=== PATIENT | male | born 1965 | race American Indian/Alaskan Native ===

== ENCOUNTER 2017-05-21 10:06 | Emergency (ER) | payer SELFPAY ==
[2017-05-21 14:21] LABS: Eosinophils % (Auto) 1.5 % (0.0-4.3); Hematocrit 44.4 % (35.5-45.6); Mean Corpuscular HGB Conc 34 % (32-34); Mean Corpuscular Hemoglobin 32 pg (28-32); Mean Corpuscular Volume 96 fl (84-94); Platelet Count 253 K/mm3 (140-440); Red Blood Count 4.63 M/mm3 (3.65-5.03); Red Cell Distribution Width 13.7 % (13.2-15.2); White Blood Count 7.4 K/mm3 (4.5-11.0)
[2017-05-21 14:29] LABS: Anion Gap 17 mmol/L; BUN/Creatinine Ratio 14; Blood Urea Nitrogen 10 mg/dL (9-20); Calcium 9.7 mg/dL (8.4-10.2); Carbon Dioxide 24 mmol/L (22-30); Chloride 96.3 mmol/L (98-107); Glucose 88 mg/dL (75-100); Potassium 4.2 mmol/L (3.6-5.0); Sodium 133 mmol/L (137-145)
--- NOTE | 2017-05-21 14:46 | Emergency Department Report ---
ED General Adult HPI - General Chief complaint: Skin/Abscess/Foreign Body Stated complaint: HEMORRHOID PAIN Time Seen by Provider: 05/21/17 12:31 Source: patient Mode of arrival: Ambulatory Limitations: No Limitations - History of Present Illness Initial comments: This is a 52-year-old male nontoxic, well nourished in appearance, no acute signs of distress presents to the ED with c/o of hemorrhoids 1 week. Patient stated he was seen in [facility] ER and was diagnosed with hemorrhoids and was instructed to follow up with a colorectal surgeon the patient has not. Patient denies any fever, chills, nausea, vomiting, abdominal pain, numbness, tingling, headache, stiff neck, chest pain or shortness of breath. Patient denies any allergies or PMH. MD Complaint: Hemorrhoids -: week(s) (1) Radiation: non-radiation Severity scale (0 -10): 8 Quality: aching Consistency: constant Improves with: none Worsens with: none Associated Symptoms: denies other symptoms. denies: confusion, chest pain, cough, diaphoresis, fever/chills, headaches, loss of appetite, malaise, nausea/ vomiting, rash, seizure, shortness of breath, syncope, weakness Treatments Prior to Arrival: none - Related Data Previous Rx's Medication Instructions Recorded Last Taken Type Hydrocortisone/Lidocaine/Aloe 1 each RC Q6H #1 kit 05/21/17 Unknown Rx [Lidocaine-Hc 2-2% Cream Kit] Allergies Allergy/AdvReac Type Severity Reaction Status Date / Time No Known Allergies Allergy Verified 05/21/17 10:22 ED Review of Systems ROS: Stated complaint: HEMORRHOID PAIN Other details as noted in HPI Constitutional: denies: chills, fever Eyes: denies: eye pain, eye discharge, vision change ENT: denies: ear pain, throat pain Respiratory: denies: cough, shortness of breath, wheezing Cardiovascular: denies: chest pain, palpitations Endocrine: no symptoms reported Gastrointestinal: denies: abdominal pain, nausea, diarrhea Genitourinary: other (Hemorrhoids). denies: urgency, dysuria Musculoskeletal: denies: back pain, joint swelling, arthralgia Skin: denies: rash, lesions Neurological: denies: headache, weakness, paresthesias Psychiatric: denies: anxiety, depression Hematological/Lymphatic: denies: easy bleeding, easy bruising ED Past Medical Hx - Past Medical History Previous Medical History?: No - Surgical History Past Surgical History?: No - Social History Smoking Status: Current Some Day Smoker Substance Use Type: Alcohol - Medications Home Medications: Home Medications Medication Instructions Recorded Confirmed Last Taken Type Hydrocortisone/Lidocaine/Aloe 1 each RC Q6H #1 kit 05/21/17 Unknown Rx [Lidocaine-Hc 2-2% Cream Kit] ED Physical Exam - General Limitations: No Limitations General appearance: alert, in no apparent distress - Head Head exam: Present: atraumatic, normocephalic - Eye Eye exam: Present: normal appearance, PERRL, EOMI Pupils: Present: normal accommodation - ENT ENT exam: Present: normal exam, normal orophraynx, mucous membranes moist, TM's normal bilaterally, normal external ear exam - Neck Neck exam: Present: normal inspection, full ROM. Absent: tenderness, meningismus, lymphadenopathy, thyromegaly - Respiratory Respiratory exam: Present: normal lung sounds bilaterally. Absent: respiratory distress, wheezes, rales, rhonchi, stridor, chest wall tenderness, accessory muscle use, decreased breath sounds, prolonged expiratory - Cardiovascular Cardiovascular Exam: Present: regular rate, normal rhythm, normal heart sounds. Absent: irregular rhythm, systolic murmur, diastolic murmur, rubs, gallop - GI/Abdominal GI/Abdominal exam: Present: soft, normal bowel sounds. Absent: distended, tenderness, guarding, rebound, rigid, diminished bowel sounds - Rectal Rectal exam: Present: deferred, hemorrhoids (slight reducible with an lanced region. No thrombosis seen) - Extremities Exam Extremities exam: Present: normal inspection, full ROM, normal capillary refill. Absent: tenderness, pedal edema, joint swelling, calf tenderness - Back Exam Back exam: Present: normal inspection, full ROM. Absent: tenderness, CVA tenderness (R), CVA tenderness (L), muscle spasm, paraspinal tenderness, vertebral tenderness, rash noted - Neurological Exam Neurological exam: Present: alert, oriented X3, CN II-XII intact, normal gait, reflexes normal - Psychiatric Psychiatric exam: Present: normal affect, normal mood - Skin Skin exam: Present: warm, dry, intact, normal color. Absent: rash ED Course Vital Signs 05/21/17 05/21/17 10:19 15:11 Temperature 97.6 F Pulse Rate 106 H 90 Respiratory 18 18 Rate Blood Pressure 134/97 Blood Pressure 145/96 [Right] O2 Sat by Pulse 98 96 Oximetry - Reevaluation(s) Reevaluation #1: 05/21/17 14:54 Follow-up with a primary care doctor in 3-5 days or if symptoms worsen and continue return to emergency room as soon as possible. - Consultations Consultation #1: 05/21/17 14:54 Dr. Bacon has been consulted about patient history, physical exam, and examined patient himself and agrees to d/c with follow-up. ED Medical Decision Making - Lab Data Result diagrams: 05/21/17 13:56 05/21/17 13:56 - Medical Decision Making This is a 52-year-old male that presents with hemorrhoids. Patient is stable and was examined by Dr. Bacon and myself. CBC and BMP obtained within normal limits. Patients old records has been obtained from [facility] ED. Patient instructed about sitz bath and f/u with colorectal surgeon. Patient also was educated on increasing fiber intake and drinking enough fluid to keep his urine clear or pale yellow. Patient was instructed to seek medical attention is he has increased pain and swelling that are not controlled by treatment or medicine, has uncontrolled bleeding, difficulty having a bowel movement or unable to have a bowel movement or having pain or inflammation outside the area of the hemorrhoids. Patient was instructed to follow-up with a primary care doctor/colon rectal surgeon in 24 hours or if symptoms worsening and continue to return to the emergency room as soon as possible. Critical care attestation.: If time is entered above; I have spent that time in minutes in the direct care of this critically ill patient, excluding procedure time. ED Disposition Clinical Impression: Hemorrhoid Qualifiers: Hemorrhoid type: unspecified Qualified Code(s): K64.9 - Unspecified hemorrhoids Disposition: DC-01 TO HOME OR SELFCARE Is pt being admited?: No Does the pt Need Aspirin: No Condition: Stable Instructions: Hemorrhoids (ED), Sitz Bath (GEN) Additional Instructions: Follow-up with a primary care doctor/colon rectal surgeon in 24 hours or if symptoms worsen and continue return to emergency room as soon as possible. Seek medical attention is he has increased pain and swelling that are not controlled by treatment or medicine, has uncontrolled bleeding, difficulty having a bowel movement or unable to have a bowel movement or having pain or inflammation outside the area of the hemorrhoids. Prescriptions: Hydrocortisone/Lidocaine/Aloe [Lidocaine-Hc 2-2% Cream Kit] 1 each RC Q6H #1 kit Referrals: [facility] [Outside] - 3-5 Days [facility] [Outside] - 3-5 Days LUIS PARIKH MD [Staff Physician] - 24 Hours [facility] [Provider Group] - 24 Hours PRIMARY CAREMD [Primary Care Provider] - 24 Hours Forms: Work/School Release Form(ED)
[2017-05-21 15:12] VITALS: BP 145/96
== END 2017-05-21 15:45 | disposition home or self-care (01) ==
LOC: ED 10:06
DX: K64.9 Unspecified hemorrhoids (principal); F17.200 Nicotine dependence, unspecified, uncomplicated; F10.10 Alcohol abuse, uncomplicated
CPT/HCPCS: 36415; 80048; 85025; 99283

== ENCOUNTER 2018-12-24 15:04 | Emergency (ER) | payer OTHER ==
--- NOTE | 2018-12-24 15:18 | Emergency Department Report ---
Blank Doc - Documentation Documentation: This is a 53-year-old male that presents with right knee pain and swelling. This initial assessment/diagnostic orders/clinical plan/treatment(s) is/are subject to change based on patient's health status, clinical progression and re- assessment by fellow clinical providers in the ED. Further treatment and workup at subsequent clinical providers discretion. Patient/guardians urged not to elope from the ED as their condition may be serious if not clinically assessed and managed. Initial orders include: 1- Patient sent to [facility] for further evaluation and treatment 2- xray
[2018-12-24 15:19] VITALS: BP 144/89
--- NOTE | 2018-12-24 16:33 | XRay Report ---
XR knee 3V RT INDICATION / CLINICAL INFORMATION: knee pain and swelling. COMPARISON: None available. FINDINGS: BONES/JOINT(S): No acute fracture or subluxation. 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 Trace suprapatella r joint effusion. SOFT TISSUES: No significant abnormality. ADDITIONAL FINDINGS: None. Signer Name: Suleiman Joshi MD Signed: 12/24/2018 3:28 PM Workstation Name: [id number]
--- NOTE | 2018-12-24 18:02 | Emergency Department Report ---
ED Extremity Problem HPI - General Chief complaint: Extremity Injury, Lower Stated complaint: KNEE PAIN Time Seen by Provider: 12/24/18 15:17 Source: patient Mode of arrival: Ambulatory Limitations: No Limitations - History of Present Illness Initial comments: Patient is a 53-year-old male who presents to the emergency room with complaints of right knee pain and edema that reoccurred last week. He states he was seen at another hospital for the same knee pain a year ago and states his x-rays were normal. He denies any fall, injury, numbness, weakness. 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 He denies any past medical history or allergies to medications. He does not have a primary care doctor. - Related Data Previous Rx's Medication Instructions Recorded Last Taken Type Lidocaine/Hydrocortisone AC 1 each RC Q6H #1 kit 05/21/17 Unknown Rx [Lidocaine-Hc 2-2% Cream Kit] Diclofenac EC [Voltaren] 25 mg PO Q8HR PRN #20 tablet 12/24/18 Unknown Rx Allergies Allergy/AdvReac Type Severity Reaction Status Date / Time No Known Allergies Allergy Verified 05/21/17 10:22 ED Review of Systems ROS: Stated complaint: KNEE PAIN Other details as noted in HPI Comment: All other systems reviewed and negative ED Past Medical Hx - Past Medical History Previous Medical History?: No Hx Arthritis: No - Surgical History Past Surgical History?: No - Social History Smoking Status: Current Every Day Smoker Substance Use Type: Alcohol - Medications Home Medications: Home Medications Medication Instructions Recorded Confirmed Last Taken Type Lidocaine/Hydrocortisone AC 1 each RC Q6H #1 kit 05/21/17 Unknown Rx [Lidocaine-Hc 2-2% Cream Kit] Diclofenac EC [Voltaren] 25 mg PO Q8HR PRN #20 tablet 12/24/18 Unknown Rx ED Physical Exam - General Limitations: No Limitations General appearance: alert, in no apparent distress - Head Head exam: Present: atraumatic, normocephalic - Eye Eye exam: Present: normal appearance - ENT ENT exam: Present: mucous membranes moist - Extremities Exam Extremities exam: Present: other (no point TTP of the right knee, edema present to the right knee, FROM of the right knee with some discomfort upon flexion, no obvious deformity, no joint laxity ) - Neurological Exam Neurological exam: Present: alert, oriented X3 - Psychiatric Psychiatric exam: Present: normal affect, normal mood - Skin Skin exam: Present: warm, dry, intact ED Course Vital Signs 12/24/18 15:17 Temperature 98 F Pulse Rate 93 H Respiratory 16 Rate Blood Pressure 144/89 O2 Sat by Pulse 98 Oximetry ED Medical Decision Making - Radiology Data Radiology results: report reviewed XR knee 3V RT INDICATION / CLINICAL INFORMATION: knee pain and swelling. COMPARISON: None available. FINDINGS: BONES/JOINT(S): No acute fracture or subluxation. Moderate DJD in the medial femorotibial and patellofemoral compartments with mild joint space loss and marginal osteophyte formation. Trace suprapatellar joint effusion. SOFT TISSUES: No significant abnormality. ADDITIONAL FINDINGS: None. Signer Name: Suleiman Joshi MD Signed: 12/24/2018 3:28 PM Workstation Name: [id number] Transcribed By: REF Dictated By: KINZA LANE MD Electronically Authenticated By: KINZA LANE MD Signed Date/Time: 12/24/18 1528 - Medical Decision Making Patient is a 53-year-old male who presents to the emergency room with complaints of right knee pain and edema that reoccurred last week. He states he was seen at another hospital for the same knee pain a year ago and states his x-rays were normal. He denies any fall, injury, numbness, weakness. 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 He denies any past medical history or allergies to medications. He does not have a primary care doctor. XR of the knee shows No acute fracture or subluxation. Moderate DJD in the medial femorotibial and patellofemoral compartments with mild joint space loss and marginal osteophyte formation. Trace suprapatellar joint effusion. on exam: no point TTP of the right knee, edema present to the right knee, FROM of the right knee with some discomfort upon flexion, no obvious deformity, no joint laxity. pt XR shows arthritic changes, discussed RICE therapy with the patient. given prescription for diclofenac. advised to please take medication as prescribed as needed. May use ice, rest, compression, elevation. Use Devin wrap as needed for discomfort. Follow-up with Dr. Murphy, orthopedic in the next 2-3 days. Return to the emergency room for any new or worsening symptoms. - Differential Diagnosis strain, sprain, fx, dislocation, arthritis Critical care attestation.: If time is entered above; I have spent that time in minutes in the direct care of this critically ill patient, excluding procedure time. ED Disposition Clinical Impression: Right knee pain Qualifiers: Chronicity: acute Qualified Code(s): M25.561 - Pain in right knee Disposition: TO HOME OR SELFCARE Is pt being admited?: No Does the pt Need Aspirin: No Condition: Stable Instructions: Osteoarthritis (ED), RICE Therapy (ED) Additional Instructions: Please take medication as prescribed as needed. May use ice, rest, compression, elevation. Use Devin wrap as needed for discomfort. Follow-up with Dr. Murphy, orthopedic in the next 2-3 days. Return to the emergency room for any new or worsening symptoms. Prescriptions: Diclofenac EC [Voltaren] 25 mg PO Q8HR PRN #20 tablet PRN Reason: Pain, Moderate (4-6) Referrals: CECILIA TENORIODENTON MD FLORENCIA [Primary Care Provider] - 2-3 Days XOCHITL MURPHY MD [Staff Physician] - 2-3 Days Time of Disposition: 18:01 Print Language: FRENCH
== END 2018-12-24 18:14 | disposition home or self-care (01) ==
LOC: ED 15:04
DX: M25.561 Pain in right knee (principal); F17.200 Nicotine dependence, unspecified, uncomplicated; Z79.899 Other long term (current) drug therapy
CPT/HCPCS: 99283

== ENCOUNTER 2019-02-10 17:44 | Emergency (ER) | payer SELFPAY ==
--- NOTE | 2019-02-10 18:49 | Event Note ---
ED Screening Note Date of service: 02/10/19 Time: 18:42 ED Screening Note: 53 y/o male comes in for rash on both inner arms. Rash that itches. Has DM and ia not following a PCP. This initial assessment/diagnostic orders/clinical plan/treatment(s) is/are subject to change based on patients health status, clinical progression and re- assessment by fellow clinical providers in the ED. Further treatment and workup at subsequent clinical providers discretion. Patient/guardian urged not to elope from the ED as their condition may be serious if not clinically assessed and managed. Initial orders include:
--- NOTE | 2019-02-10 18:55 | Emergency Department Report ---
Chief Complaint: Dizziness Stated Complaint: PASSED OUT INJURED BACK Time Seen by Provider: 02/10/19 18:39 - HPI History of Present Illness: 53 y/o male comes in for rash on both inner arms. Rash that itches. Has DM and ia not following a PCP. - ROS Review of Systems: Rash on arms that itch. - Exam Vital Signs: Vital Signs 02/10/19 18:20 Temperature 98.3 F Pulse Rate 98 H Respiratory 18 Rate Blood Pressure 147/87 O2 Sat by Pulse 100 Oximetry Physical Exam: AxO times 3 Inner arm hyperpigmented thick scaly MSE screening note: Focused history and physical exam performed. Due to findings the following was ordered: Patient will be placed on [facility] ED Disposition for MSE Clinical Impression: Contact dermatitis Disposition: DC- TO HOME OR SELFCARE Is pt being admited?: No Does the pt Need Aspirin: No Condition: Stable Instructions: Contact Dermatitis (ED) Additional Instructions: Use ointment as prescribed. Follow up with a Primary Care provider. Prescriptions: Triamcinolone Acetonide [Triamcinolone Acetonide Oint 0.5%] 1 applic TP BID PRN #30 oint...g. PRN Reason: Rash Referrals: [facility] [Outside] - 3-5 Days [facility] [Outside] - 3-5 Days [facility] [Outside] - 3-5 Days
[2019-02-10] MEDS ORDERED: NORCO 5/325 PO ONE (21:21)
[2019-02-10 21:38] LABS: Basophils # (Auto) 0.1 K/mm3 (0.0-0.1); Eosinophils # (Auto) 0.2 K/mm3 (0.0-0.4); Eosinophils % (Auto) 2.8 % (0.0-4.3); Hematocrit 41.6 % (35.5-45.6); Hemoglobin 14.4 gm/dl (11.8-15.2); Lymphocytes # (Auto) 2.2 K/mm3 (1.2-5.4); Mean Corpuscular HGB Conc 35 % (32-34); Mean Corpuscular Volume 96 fl (84-94); Monocytes # (Auto) 0.7 K/mm3 (0.0-0.8); Monocytes % (Auto) 10.3 % (0.0-7.3); Platelet Count 240 K/mm3 (140-440); Red Blood Count 4.34 M/mm3 (3.65-5.03); Red Cell Distribution Width 13.9 % (13.2-15.2)
--- NOTE | 2019-02-10 21:40 | Emergency Department Report ---
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 denies: confusion, chest pain, cough, diaphoresis, fever/chills, headaches, loss of appetite, nausea/vomiting, rash, seizure, shortness of breath, weakness Treatments Prior to Arrival: none - Related Data Previous Rx's Medication Instructions Recorded Last Taken Type Lidocaine/Hydrocortisone AC 1 each RC Q6H #1 kit 05/21/17 Unknown Rx [Lidocaine-Hc 2-2% Cream Kit] Diclofenac EC [Voltaren] 25 mg PO Q8HR PRN #20 tablet 12/24/18 Unknown Rx Triamcinolone Acetonide 1 applic TP BID PRN #30 oint...g. 02/10/19 Unknown Rx [Triamcinolone Acetonide Oint 0.5%] Famotidine [Pepcid] 20 mg PO BID #60 tablet 02/11/19 Unknown Rx Ibuprofen [Motrin 800 MG tab] 800 mg PO Q8HR PRN #30 tablet 02/11/19 Unknown Rx Allergies Allergy/AdvReac Type Severity Reaction Status Date / Time No Known Allergies Allergy Verified 05/21/17 10:22 ED Review of Systems ROS: Stated complaint: PASSED OUT INJURED BACK Other details as noted in HPI Constitutional: denies: chills, fever Eyes: denies: eye pain, eye discharge, vision change ENT: denies: ear pain, throat pain Respiratory: no symptoms reported Cardiovascular: denies: chest pain, palpitations Endocrine: no symptoms reported Gastrointestinal: denies: abdominal pain, nausea, vomiting, diarrhea, constipation, hematemesis, melena Genitourinary: denies: urgency, dysuria, frequency, discharge Musculoskeletal: back pain, arthralgia. denies: joint swelling, myalgia Skin: denies: rash, lesions Neurological: denies: headache, weakness, numbness, paresthesias, confusion, abnormal gait, vertigo Psychiatric: denies: anxiety, depression Hematological/Lymphatic: denies: easy bleeding, easy bruising ED Past Medical Hx - Past Medical History Previous Medical History?: No Hx Arthritis: No - Surgical History Past Surgical History?: Yes Additional Surgical History: ABD SURGERY 17 YRS AGO - Social History Smoking Status: Current Every Day Smoker Substance Use Type: Alcohol - Medications Home Medications: Home Medications Medication Instructions Recorded Confirmed Last Taken Type Lidocaine/Hydrocortisone AC 1 each RC Q6H #1 kit 05/21/17 Unknown Rx [Lidocaine-Hc 2-2% Cream Kit] Diclofenac EC [Voltaren] 25 mg PO Q8HR PRN #20 tablet 12/24/18 Unknown Rx Triamcinolone Acetonide 1 applic TP BID PRN #30 oint...g. 02/10/19 Unknown Rx [Triamcinolone Acetonide Oint 0.5%] Famotidine [Pepcid] 20 mg PO BID #60 tablet 02/11/19 Unknown Rx Ibuprofen [Motrin 800 MG tab] 800 mg PO Q8HR PRN #30 tablet 02/11/19 Unknown Rx ED Physical Exam - General Limitations: No Limitations General appearance: alert, in no apparent distress - Head Head exam: Present: atraumatic, normocephalic - Eye Eye exam: Present: normal appearance, PERRL, EOMI Pupils: Present: normal accommodation - ENT ENT exam: Present: mucous membranes moist - Neck Neck exam: Present: normal inspection, full ROM. Absent: tenderness, lymphadenopathy, thyromegaly - Respiratory Respiratory exam: Present: normal lung sounds bilaterally. Absent: respiratory distress, wheezes, stridor, chest wall tenderness - Cardiovascular Cardiovascular Exam: Present: regular rate, normal rhythm, normal heart sounds. Absent: systolic murmur, diastolic murmur, rubs, gallop - GI/Abdominal GI/Abdominal exam: Present: soft, normal bowel sounds. Absent: distended, tenderness, guarding, rebound, rigid, bruit, hernia - Rectal Rectal exam: Present: deferred - Extremities Exam Extremities exam: Present: normal inspection, full ROM, normal capillary refill. Absent: tenderness, pedal edema, joint swelling, calf tenderness - Back Exam Back exam: Present: normal inspection, full ROM, tenderness (no posterior vertebral point tenderness mild paraspinus muscle tenderness to deep palpation neg straight leg rom intact and unrestricted ), muscle spasm, paraspinal tenderness. Absent: CVA tenderness (R), CVA tenderness (L), vertebral tender ness, rash noted - Expanded Back Exam Expanded Back exam: Absent: saddle anesthesia Back exam: Negative Straight Leg Raising: Left, Right - Neurological Exam Neurological exam: Present: alert, oriented X3, CN II-XII intact, normal gait, reflexes normal. Absent: motor sensory deficit - Expanded Neurological Exam Expanded Patient oriented to: Present: person, place, time Speech: Present: fluid speech Cranial nerves: EOM's Intact: Normal, Gag Reflex: Normal, Tongue Deviation: Normal, Nystagmus: Normal, Facial Sensation: Normal Cerebellar function: Finger to Nose: Normal, Heel to Watkins: Normal, Romberg: Normal Upper motor neuron: Jose Neglect: Normal, Pronator Drift: Normal, Babinski Sign: Normal, Sensory Extinction: Normal Motor strength exam: RUE: 5, LUE: 5, RLE: 5, LLE: 5 DTR: bicep (R): 2+, bicep (L): 2+, ankle (R): 2+, ankle (L): 2+ Best Eye Response (Cookie): (4) open spontaneously Best Motor Response (Cookie): (6) obeys commands Best Verbal Response (Cookie): (5) oriented Cookie Total: 15 - Psychiatric Psychiatric exam: Present: normal affect, normal mood - Skin Skin exam: Present: warm, dry, intact, normal color. Absent: rash ED Course Vital Signs 02/10/19 18:20 Temperature 98.3 F Pulse Rate 98 H Respiratory 18 Rate Blood Pressure 147/87 O2 Sat by Pulse 100 Oximetry ED Medical Decision Making - Lab Data Result diagrams: 02/10/19 21:28 02/10/19 21:28 Lab Results 02/10/19 02/10/19 02/10/19 Range/Units 21:28 21:28 22:41 WBC 6.7 (4.5-11.0) K/mm3 RBC 4.34 (3.65-5.03) M/mm3 Hgb 14.4 (11.8-15.2) gm/dl Hct 41.6 (35.5-45.6) % MCV 96 H (84-94) fl MCH 33 H (28-32) pg MCHC 35 H (32-34) % RDW 13.9 (13.2-15.2) % Plt Count 240 (140-440) K/mm3 Lymph % (Auto) 32.0 (13.4-35.0) % [place] % (Auto) 10.3 H (0.0-7.3) % Eos % (Auto) 2.8 (0.0-4.3) % Baso % (Auto) 1.0 (0.0-1.8) % Lymph # 2.2 (1.2-5.4) K/mm3 [place] # 0.7 (0.0-0.8) K/mm3 Eos # 0.2 (0.0-0.4) K/mm3 Baso # 0.1 (0.0-0.1) K/mm3 Seg Neutrophils % 53.9 (40.0-70.0) % Seg Neutrophils # 3.6 (1.8-7.7) K/mm3 Sodium 137 (137-145) mmol/L Potassium 4.2 (3.6-5.0) mmol/L Chloride 102.1 (98-107) mmol/L Carbon Dioxide 23 (22-30) mmol/L Anion Gap 16 mmol/L BUN 17 (9-20) mg/dL Creatinine 0.8 (0.8-1.5) mg/dL Estimated GFR > 60 ml/min BUN/Creatinine Ratio 21 % Glucose 100 (75-100) mg/dL Calcium 10.4 H (8.4-10.2) mg/dL Total Bilirubin 0.70 (0.1-1.2) mg/dL AST 63 H (5-40) units/L ALT 87 H (7-56) units/L Alkaline Phosphatase 130 H (35-129) units/L Troponin T < 0.010 (0.00-0.029) ng/mL Total Protein 7.4 (6.3-8.2) g/dL Albumin 4.1 (3.9-5) g/dL Albumin/Globulin Ratio 1.2 % Urine Color Yellow (Yellow) Urine Turbidity Clear (Clear) Urine pH 5.0 (5.0-7.0) Ur Specific Alpha 1.024 (1.003-1.030) Urine Protein <15 mg/dl (Negative) mg/dL Urine Glucose (UA) Neg (Negative) mg/dL Urine Ketones Neg (Negative) mg/dL Urine Blood Neg (Negative) Urine Nitrite Neg (Negative) Urine Bilirubin Neg (Negative) Urine Urobilinogen < 2.0 (<2.0) mg/dL Ur Leukocyte Esterase Neg (Negative) Urine WBC (Auto) < 1.0 (0.0-6.0) /HPF Urine RBC (Auto) 3.0 (0.0-6.0) /HPF U Epithel Cells (Auto) < 1.0 (0-13.0) /HPF Urine Mucus Few /HPF - Radiology Data Radiology results: report reviewed, image reviewed Ordering Physician: ALPA NAVA NP Date of Service: 02/10/19 Procedure(s): XR spine lumbosacral 2-3V Accession Number(s): [id number] cc: ALPA NAVA NP Fluoro Time In Minutes: LUMBOSACRAL SPINE 3 VIEWS INDICATION / CLINICAL INFORMATION: fall on concrete with low back pain. COMPARISON: None available. FINDINGS: BONES / JOINT(S): There is mild thoracolumbar dextroscoliosis. There is mild spondylosis, most prominent at L3-4. The pedicles are intact and the SI joints are normal. There is no evidence of fracture or subluxation. SOFT TISSUES: No significant abnormality. ADDITIONAL FINDINGS: None. IMPRESSION: No acute abnormality. Signer Name: Jung Aparicio MD Signed: 02/10/2019 10:31 PM Workstation Name: [id number] Transcribed By: RT Dictated By: Jung Aparicio MD Electronically Authenticated By: Jung Aparicio MD Signed Date/Time: 02/10/19 [id number] Ordering Physician: ALPA NAVA NP Date of Service: 02/10/19 Procedure(s): XR chest routine 2V Accession Number(s): [id number] cc: ALPA NAVA NP Fluoro Time In Minutes: CHEST 2 VIEWS INDICATION / CLINICAL INFORMATION: Syncope. COMPARISON: None available. FINDINGS: SUPPORT DEVICES: None. HEART / MEDIASTINUM: The heart size and pulmonary vasculature are normal. The aorta is normal in caliber. LUNGS / PLEURA: No significant pulmonary or pleural abnormality. No pneumothorax. ADDITIONAL FINDINGS: No significant additional findings. IMPRESSION: No acute findings. Signer Name: Jung Aparicio MD Signed: 02/10/2019 10:30 PM Workstation Name: [id number] Transcribed By: RT Dictated By: Jung Aparicio MD Electronically Authenticated By: Jung Aparicio MD Signed Date/Time: 02/10/192229 DD/ 28 TD/TT: - Medical Decision Making cxr: normal no infiltrates no opacities, lumbar xrays DDD chronic, EKG NSR no ST Elevated CA , pain is resolved , pt advised to stop etoh and marijuana abuse follow up with pcp in 2-3 days given referral to pcp , pt dc 'd self in stable condition at this time. pt is tolerating po intake without n/v no cp no sob no d izziness no lightheadeness no fever or chills, Critical care attestation.: If time is entered above; I have spent that time in minutes in the direct care of this critically ill patient, excluding procedure time. ED Disposition Clinical Impression: Near syncope, Stress Disposition: DC-01 TO HOME OR SELFCARE Is pt being admited?: No Does the pt Need Aspirin: No Condition: Stable Instructions: Stress (ED), Near Syncope (ED) Additional Instructions: Use ointment as prescribed. Follow up with a Primary Care provider. Prescriptions: Ibuprofen [Motrin 800 MG tab] 800 mg PO Q8HR PRN #30 tablet PRN Reason: Pain , Severe (7-10) Famotidine [Pepcid] 20 mg PO BID #60 tablet Triamcinolone Acetonide [Triamcinolone Acetonide Oint 0.5%] 1 applic TP BID PRN #30 oint...g. PRN Reason: Rash Referrals: [facility] [Outside] - 3-5 Days [facility] [place] [Outside] - 3-5 Days [facility] [Outside] - 3-5 Days Forms: Work/School Release Form(ED) Time of Disposition: 00:27
[2019-02-10 22:03] LABS: Alanine Aminotransferase 87 units/L (7-56); Albumin 4.1 g/dL (3.9-5); BUN/Creatinine Ratio 21; Blood Urea Nitrogen 17 mg/dL (9-20); Calcium 10.4 mg/dL (8.4-10.2); Hemolysis Index 6
--- NOTE | 2019-02-10 22:34 | XRay Report ---
CHEST 2 VIEWS INDICATION / CLINICAL INFORMATION: Syncope. COMPARISON: None available. FINDINGS: SUPPORT DEVICES: None. HEART / MEDIASTINUM: The heart size and pulmonary vasculature are normal. The aorta is normal in miguel albert. LUNGS / PLEURA: No significant pulmonary or pleural abnormality. No pneumothorax. ADDITIONAL FINDINGS: No significant additional findings. IMPRESSION: No acute findings. Signer Name: Jung Aparicio MD Signed: 02/10/2019 10:30 PM Workstation Name: [id number]
--- NOTE | 2019-02-10 22:36 | XRay Report ---
LUMBOSACRAL SPINE 3 VIEWS INDICATION / CLINICAL INFORMATION: Fall Sunday on concrete with low back pain. COMPARISON: None available. FINDINGS: BONES / JOINT(S): There is mild thoracolumbar dextroscoliosis. There is mild spondylosis, most promin ent at L3-4. The pedicles are intact and the SI joints are normal. There is no evidence of fracture o r subluxation. SOFT TISSUES: No significant abnormality. ADDITIONAL FINDINGS: None. IMPRESSION: No acute abnormality. Signer Name: Jung Aparicio MD Signed: 02/10/2019 10:31 PM Workstation Name: [id number]
[2019-02-10 23:15] LABS: Bilirubin,Urine NEG (Negative); Blood,Urine NEG (Negative); Color,Urine Yellow (Yellow); Mucus,Urine FEW /HPF; Protein,Urine <15 mg/dL mg/dL (Negative); Urobilinogen,Urine < 2.0 mg/dL (<2.0); WBC,Urine < 1.0 /HPF (0.0-6.0)
[2019-02-11 00:43] VITALS: BP 153/107
== END 2019-02-11 00:42 | disposition home or self-care (01) ==
LOC: ED 17:44
DX: R55 Syncope and collapse (principal); F43.9 Reaction to severe stress, unspecified; F17.200 Nicotine dependence, unspecified, uncomplicated; Z79.899 Other long term (current) drug therapy
CPT/HCPCS: 36415; 71046; 72100; 80053; 81001; 84484; 85025; 93005; 93010